=== PATIENT | female | born 1970 | race Caucasian/White ===

== ENCOUNTER → 2017-01-31 | Outpatient (CLI) | payer OTHER, BC ==
--- NOTE | 2017-01-31 08:14 | MM ---
Reason for exam: screening (asymptomatic). Baseline mammogram. History: Family history of breast cancer in paternal aunt at age 30 and breast cancer in maternal aunt at age 40. Took hormonal contraceptives beginning at age 18. Physical Findings: Nurse did not find any significant physical abnormalities on exam. MG Screening Mammo w CAD Bilateral CC and MLO view(s) were taken. XCCL view(s) were taken of the right breast. Bilateral intramammary nodes. No suspicious abnormality. These results were verbally communicated with the patient and result sheet given to the patient on 01/31/17. ASSESSMENT: Benign, BI-RAD 2 RECOMMENDATION: Routine screening mammogram of both breasts in 1 year.
== END ==
LOC: RADMAMWWP 06:45
PROVIDERS: ATTEND Family Medicine
DX: Z12.31 Encounter for screening mammogram for malignant neoplasm of breast (principal)

== ENCOUNTER → 2020-05-09 | Outpatient (CLI) | payer OTHER, BC ==
--- NOTE | 2020-05-09 07:45 | MR ---
EXAMINATION TYPE: MR knee RT wo con DATE OF EXAM: 05/09/2020 COMPARISON: HISTORY: Pain in right knee per order. Pain and swelling for 3 to 5 years per patient. TECHNIQUE: Multiplanar, multisequence imaging of the right knee is performed without IV contrast. FINDINGS: MEDIAL MENISCUS: Medial extrusion medial meniscus on coronal images. Abnormal signal posterior horn e xtends into central body which is emaciated. LATERAL MENISCUS: Anterior and posterior horns are intact without tear. CRUCIATE LIGAMENTS: The anterior and posterior cruciate ligaments are intact and unremarkable. COLLATERAL LIGAMENTS: The medial collateral ligament and lateral collateral ligament complex are inta ct. Medial buckling medial collateral ligament noted from extruded meniscus. EXTENSOR MECHANISM: Visualized quadriceps and patellar tendons are intact. EFFUSION: No significant suprapatellar joint effusion. POPLITEAL CYST: Large size popliteal/salvador cyst measuring 10 cm sagittal image 6. TRICOMPARTMENT SPACES: Moderate to severe patellofemoral compartment and medial tibiofemoral compartm ent joint space loss and spurring. Mild to moderate spurring and narrowing lateral tibiofemoral melva rtment. CARTILAGE: Significant chondromalacia patella along the posterior patellar pole with areas of full-th ickness loss noted. Full-thickness cartilaginous loss medial tibiofemoral compartment. BONE MARROW SIGNAL: No focal abnormal marrow signal is appreciated. OTHER: No additional significant abnormality is appreciated. IMPRESSION: 1. Fairly severe patellofemoral and medial tibiofemoral compartment degenerative changes especially f or patient's age as detailed above. 2. Full-thickness tear central body and posterior horn of medial meniscus. 3. Large popliteal cyst.
== END | disposition home or self-care (01) ==
LOC: RADMRIMAIN 06:44
PROVIDERS: ATTEND Family Medicine
DX: M17.11 Unilateral primary osteoarthritis, right knee (principal); S83.241A Other tear of medial meniscus, current injury, right knee, initial encounter; M71.21 Synovial cyst of popliteal space [Baker], right knee

== ENCOUNTER → 2020-08-12 | Outpatient (CLI) | payer OTHER, BC ==
--- NOTE | 2020-08-16 09:45 | MM ---
Reason for exam: screening (asymptomatic). Last mammogram was performed 3 years and 6 months ago. History: Family history of breast cancer in paternal aunt at age 30 and breast cancer in maternal aunt at age 40. Took hormonal contraceptives beginning at age 18. Physical Findings: A clinical breast exam by your physician is recommended on an annual basis and results should be correlated with mammographic findings. MG 3D Screening Mammo W/Cad Bilateral CC, MLO, and XCCL view(s) were taken. Prior study comparison: January 31, 2017, bilateral MG screening mammo w CAD. There are scattered fibroglandular densities. There is chronic nodularity bilaterally laterally. No significant changes when compared with prior studies. ASSESSMENT: Negative, BI-RAD 1 RECOMMENDATION: Routine screening mammogram of both breasts in 1 year.
== END | disposition home or self-care (01) ==
LOC: RADMAMWWP 16:02
PROVIDERS: ATTEND Family Medicine
DX: Z12.31 Encounter for screening mammogram for malignant neoplasm of breast (principal)
CPT/HCPCS: 77063; 77067

== ENCOUNTER 2022-03-03 20:02 | Observation (INO) | payer BC, OTHER ==
--- NOTE | 2022-03-03 20:37 | XR ---
EXAMINATION TYPE: XR chest 2V DATE OF EXAM: 03/03/2022 COMPARISON: NONE HISTORY: Chest pain TECHNIQUE: 2 views FINDINGS: Heart and mediastinum are normal. Lungs are clear. Diaphragm is normal. Bony thorax is norm al. IMPRESSION: Normal chest.
[2022-03-03 20:45] LABS: Basophils % (A) 0 %; Eosinophils # (A) 0.2 k/uL (0-0.7); Eosinophils % (A) 2 %; HCT 38.7 % (34.0-46.0); HGB 13.3 gm/dL (11.4-16.0); Lymphocytes # (A) 2.1 k/uL (1.0-4.8); Lymphocytes % (A) 24 %; MCH 30.4 pg (25.0-35.0); MCHC 34.5 g/dL (31.0-37.0); Mean Platelet Volume 9.3; Monocytes # (A) 0.6 k/uL (0-1.0); Monocytes % (A) 7 %; Neutrophils # (A) 5.6 k/uL (1.3-7.7); Neutrophils % (A) 65 %; Platelet Count 246 k/uL (150-450); RBC 4.39 m/uL (3.80-5.40); RDW 12.8 % (11.5-15.5); WBC 8.6 k/uL (3.8-10.6)
[2022-03-03 20:53] LABS: INR 0.9 (<1.2); Partial Thromboplastin Time 24.2 sec (22.0-30.0); Prothrombin Time 10.3 sec (9.0-12.0)
[2022-03-03 20:59] LABS: ALT 21 U/L (4-34); AST 20 U/L (14-36); African American GFR (CKD) >90 (>60 ml/min/1.73 sqM); Albumin 4.4 g/dL (3.5-5.0); Alkaline Phosphatase 66 U/L (38-126); Anion Gap 10 mmol/L; Blood Urea Nitrogen 21 mg/dL (7-17); Calcium 9.1 mg/dL (8.4-10.2); Carbon Dioxide 25 mmol/L (22-30); Chloride 102 mmol/L (98-107); Glucose 98 mg/dL (74-99); Magnesium 1.9 mg/dL (1.6-2.3); Non-African American GFR(CKD) >90 (>60 ml/min/1.73 sqM); Potassium 3.9 mmol/L (3.5-5.1); Sodium 137 mmol/L (137-145); Total Bilirubin 0.3 mg/dL (0.2-1.3); Total Protein 6.8 g/dL (6.3-8.2)
--- NOTE | 2022-03-03 21:52 | ED ---
Chest Pain HPI - General Chief Complaint: Chest Pain Stated Complaint: Chest pain Time Seen by Provider: 03/03/22 21:51 Source: patient, RN notes reviewed, old records reviewed Mode of arrival: ambulatory Limitations: no limitations - History of Present Illness Initial Comments: This is a 52-year-old female to the ER for evaluation of chest pain. Is having mainly palpitations near syncopal feelings feels that she's having an abnormal heartbeat. Occasional chest pain. Patient does have history of PVCs no prior history of heart evaluation, Patient has no cp currently does have SOB, and diaphoresis during events, does have strong family history of heart disease herself has high blood pressure no prior cardiac evaluation MD Complaint: chest pain -: days(s) Onset: during rest Pain Location: substernal, left chest Pain Radiation: none Severity: moderate Severity scale (1-10): 4 Quality: tightness, heaviness Consistency: intermittent Improves With: nothing, eating Anginal Symptoms: diaphoresis, dyspnea, sense of impending doom Other Symptoms: palpitations Treatments Prior to Arrival: none - Related Data Home Medications Medication Instructions Recorded Confirmed Lisinopril/Hydrochlorothiazide 1 tab PO DAILY 09/15/15 03/03/22 [Lisinopril-Hctz 10-12.5 mg Tab] amLODIPine [Norvasc] 5 mg PO DAILY 03/03/22 03/03/22 Allergies Allergy/AdvReac Type Severity Reaction Status Date / Time No Known Allergies Allergy Verified 03/03/22 22:12 Review of Systems ROS Statement: Those systems with pertinent positive or pertinent negative responses have been documented in the HPI. ROS Other: All systems not noted in ROS Statement are negative. EKG Findings - EKG Comments: EKG Findings:: EKG sinus 77 TX 176 QRS 11 QTC 418 positive PVC Past Medical History Past Medical History: No Reported History History of Any Multi-Drug Resistant Organisms: None Reported Past Surgical History: Section, Joint Replacement Past Psychological History: No Psychological Hx Reported Smoking Status: Never smoker Past Alcohol Use History: Occasional Past Drug Use History: None Reported General Exam Limitations: no limitations General appearance: alert, in no apparent distress Head exam: Present: atraumatic, normocephalic, normal inspection Eye exam: Present: normal appearance, PERRL, EOMI. Absent: scleral icterus, conjunctival injection, periorbital swelling ENT exam: Present: normal exam, mucous membranes moist Neck exam: Present: normal inspection. Absent: tenderness, meningismus, lymphadenopathy Respiratory exam: Present: normal lung sounds bilaterally. Absent: respiratory distress, wheezes, rales, rhonchi, stridor Cardiovascular Exam: Present: regular rate, normal rhythm, normal heart sounds. Absent: systolic murmur, diastolic murmur, rubs, gallop, clicks GI/Abdominal exam: Present: soft, normal bowel sounds. Absent: distended, tenderness, guarding, rebound, rigid Extremities exam: Present: normal inspection, full ROM, normal capillary refill. Absent: tenderness, pedal edema, joint swelling, calf tenderness Back exam: Present: normal inspection Neurological exam: Present: alert, oriented X3, CN II-XII intact Psychiatric exam: Present: normal affect, normal mood Skin exam: Present: warm, dry, intact, normal color. Absent: rash Course Vital Signs 03/03/22 03/03/22 20:08 23:11 Temperature 98.1 F Pulse Rate 77 79 Respiratory 18 18 Rate Blood Pressure 159/90 145/96 O2 Sat by Pulse 100 97 Oximetry - Reevaluation(s) Reevaluation #1: 03/03/22 23:03 medical record is reviewed Reevaluation #2: 03/03/22 23:03 patient still with palpitations Reevaluation #3: 03/03/22 23:03 patient informed of results and questions answered - Consultations Consultation #1: spoke with [facility] and they agree to admit the patient Chest Pain MDM - MDM 52 female to the ED c.o PVCs, chest pain, near syncope, weakness, will admit for cardiac evaluation, has history of HTN, strong family history of heart disease Disposition Clinical Impression: Atypical chest pain, Chest pain, Palpitations, Premature ventricular contraction Disposition: ADMITTED IP TO THIS HOSP Condition: Undetermined Is patient prescribed a controlled substance at d/c from ED?: No Time of Disposition: 23:00
[2022-03-03] MEDS ORDERED: ASPIRIN 81 MG PO STA (22:58)
[2022-03-03] MEDS ORDERED: NITROGLYCERIN SL TABS 0.4 MG TAB SUBLINGUAL PRN (22:58)
--- NOTE | 2022-03-04 03:58 | P.HPIM ---
History of Present Illness H&P Date: 03/04/22 The patient is a 52-year-old female with a PMH of hypertension who presents to the emergency room with complaints of palpitations and chest discomfort. The patient reports that she has been experiencing symptoms intermittently over the past several weeks, and was scheduled to undergo a stress test with cardiology associates. She states however that her symptoms recently worsened last night when she developed her palpitations and substernal 5 out of 10 chest discomfort, pressure-like in nature, nonradiating, with some associated dizziness. She reports that her pain was constant for up to an hour, which prompted her to come to the emergency room. She denied associated shortness of breath, nausea, diaphoresis. Denied lower extremity swelling or pain. Denies fever, chills, cough. Chest x-ray in the emergency room was unremarkable. EKG in the emergency room revealed sinus rhythm at 77 bpm with PVCs and no ST/T-wave changes noted as reviewed by me. Laboratory evaluation revealed a troponin of less than 0.012. Review of systems: Pertinent positives and negatives as discussed in HPI, a complete review of systems was performed and all other systems are negative. Physical examination: General: non toxic, no distress, appears at stated age, obese Derm: no unusual rashes/lesions, warm Head: atraumatic, normocephalic, symmetric Eyes: EOMI, no lid lag, anicteric sclera, pupils equal round reactive to light ENT: Nose and ears atraumatic Neck: No cervical lymphadenopathy, trachea midline, supple Mouth: no lip lesion, mucus membranes moist Cardiovascular: S1S2 reg, no murmur, positive dorsalis pedis pulse bilateral, no edema Lungs: CTA bilateral, no rhonchi, no rales, no accessory muscle use Abdominal: soft, nontender to palpation, no guarding Ext: muscle strength 5 out of 5 in all 4 extremities grossly, no gross muscle atrophy, no contractures, Neuro: CN II-XI grossly intact, no gross focal neuro deficits Psych: Alert, oriented, appropriate affect Assessment/plan Chest pain, rule out ACS -Cardiac consult -Continue aspirin, statin -Cardiac monitoring -Echocardiogram Chronic conditions: Hypertension -Continue with home meds DVT prophylaxis -Heparin subcu The patient is admitted with an anticipated less than 2 midnight stay for evaluation of chest pain. CODE STATUS: Full Code Discussed with: Patient Anticipated discharge date: In a.m. Anticipated discharge place: Home Past Medical History Past Medical History: No Reported History History of Any Multi-Drug Resistant Organisms: None Reported Past Surgical History: Section, Joint Replacement Past Psychological History: No Psychological Hx Reported Smoking Status: Never smoker Past Alcohol Use History: Occasional Past Drug Use History: None Reported - Past Family History Mother Family Medical History: Hypertension Medications and Allergies Home Medications Medication Instructions Recorded Confirmed Type Lisinopril/Hydrochlorothiazide 1 tab PO DAILY 09/15/15 03/03/22 History [Lisinopril-Hctz 10-12.5 mg Tab] amLODIPine [Norvasc] 5 mg PO DAILY 03/03/22 03/03/22 History Allergies Allergy/AdvReac Type Severity Reaction Status Date / Time No Known Allergies Allergy Verified 03/03/22 22:12 Physical Exam Vitals: Vital Signs Temp Pulse Resp BP Pulse Ox 03/04/22 03:54 98.6 F 64 16 102/58 98 03/04/22 02:09 68 18 110/76 97 03/03/22 23:11 79 18 145/96 97 03/03/22 20:08 98.1 F 77 18 159/90 100 Intake and Output 03/03/22 03/03/22 03/04/22 14:59 22:59 06:59 Other: Weight 104.326 kg Results CBC & Chem 7: 03/03/22 20:10 03/03/22 20:10 Labs: Abnormal Lab Results - Last 24 Hours (Table) 03/03/22 Range/Units 20:10 BUN 21 H (7-17) mg/dL
[2022-03-04] MEDS: ATORVASTATIN 80 MG TAB PO SCH ×2 (04:37→20:54)
[2022-03-04] MEDS: ASPIRIN 325 MG TAB PO SCH (09:26)
[2022-03-04] MEDS: amLODIPine 5 MG TAB PO SCH (09:26)
[2022-03-04] MEDS ORDERED: ACETAMINOPHEN TAB 500 MG TAB PO PRN (09:36)
[2022-03-04] MEDS: METOPROLOL TARTRATE 25 MG TAB PO SCH ×2 (09:59→20:54)
[2022-03-04 10:10] LABS: Chol/HDL Ratio 3.59 Ratio; LDL Cholesterol,Calculated 102.6 mg/dL (0.0-131.0)
[2022-03-04] MEDS: LISINOPRIL-HCTZ 10-12.5 MG 1 EACH TAB PO SCH (12:27)
[2022-03-04] MEDS ORDERED: diphenhydrAMINE 50 MG/ML 1 ML VIAL IVP STA (13:04)
[2022-03-04] MEDS ORDERED: PROCHLORPERAZINE INJ 10 MG/2 ML VIAL IVP STA (13:04)
[2022-03-04] MEDS ORDERED: KETOROLAC 15 MG/ML 1 ML VIAL IVP STA (13:04)
--- NOTE | 2022-03-04 13:35 | P.PN ---
Subjective Progress Note Date: 03/04/22 Hospital course: Patient is a very pleasant 52-year-old female with a past medical history of hypertension. She presented to the emergency department with a chief complaint of chest pain and palpitations intermittently worsening over the past several weeks. She underwent full evaluation in the emergency department. CBC, coags, and CMP were unremarkable. Troponin less than 0.012. Chest x-ray negative for acute cardiopulmonary process. EKG showing sinus rhythm at 77 bpm with frequent PVCs, no T-wave or ST abnormalities showing no signs of acute ischemia. Patient was admitted under the services with consultation to cardiology. Troponins were trended all negative at less than 0.0123 draws. Lipid profile unremarkable. Plan is for patient to undergo exercise stress echo tomorrow morning. Physical exam: Patient seen and fully evaluated at bedside this morning. Currently patient reports being free from chest pain but reports is an intermittent pressure that occurs with palpitations. Patient reports currently having a headache and to be medicated at this time, but denies experiencing any dizziness, changes in vision or hearing, shortness of breath, exertional dyspnea, or experiencing any numbness/tingling/swelling/weakness in her extremities. Vital signs reviewed and stable. General: Nontoxic, no distress and appears stated age. Derm: Skin warm and dry, normal coloration for ethnicity. Head: Atraumatic, normocephalic and symmetric. Eyes: EOMs intact, no lid lag, and anicteric sclera Mouth: no lip lesions, mucus membranes moist Cardiovascular: regular rate and rhythm with normal S1S2, no murmur, positive posterior tibial pulses bilaterally, and cap refill < 2 seconds. Lungs: Respirations even, regular, and unlabored on room air. Lungs CTA bi laterally, no rhonchi, no rales, no wheezing, and no accessory muscle usage. Abdominal: soft, nontender to palpation, no guarding, no appreciable organomegaly Ext: ROM intact. No gross muscle atrophy, no edema, no contractures Neuro: Speech clear, face symmetrical and CN II-XII grossly intact with no noted focal neuro deficits Psych: Alert and oriented to person, place, time, and situation. Appropriate and pleasant affect. Assessment and Plan of Care: Chest pain, rule out acute coronary event -Cardiology consulted, plans to take patient for exercise stress echo tomorrow morning -Telemetry monitoring -Troponins negative -Cardiac diet, NPO at midnight -Aspirin, amlodipine, lisinopril-Hctz, and metoprolol. -Lipid profile unremarkable. -Exercise Stress Echocardiogram to be completed. Hypertension -Monitor vital signs and continue daily medication regimen with amlodipine, lisinopril-Hctz, and metoprolol. CODE STATUS: Full code DVT prophylaxis: Heparin Discussed with: Patient and RN Anticipated discharge date: 1-[address]: Home A total of 35 minutes was spent on the care of this complex patient more than 50% of the time was spent in counseling and care coordination. I reviewed the documentation as provided by the DAGOBERTO above, who is the original author of this note. I agree with the documented assessment and plan, with the following changes: none Objective - Vital Signs Vital signs: Vital Signs Temp 98.2 F 03/04/22 07:45 Pulse 72 03/04/22 07:45 Resp 14 03/04/22 07:45 BP 178/89 03/04/22 07:45 Pulse Ox 98 03/04/22 07:45 FiO2 Intake & Output 03/03/22 03/04/22 03/04/22 18:59 06:59 18:59 Weight 104.326 kg 104.326 kg - Labs CBC & Chem 7: 03/03/22 20:10 03/03/22 20:10 Labs: Abnormal Lab Results - Last 24 Hours (Table) 03/03/22 Range/Units 20:10 BUN 21 H (7-17) mg/dL
[2022-03-04] MEDS: HEPARIN SODIUM,PORCINE/PF 5,000 UNIT/0.5 ML SYRINGE SQ SCH (16:52)
--- NOTE | 2022-03-05 00:04 | CONS ---
CONSULTATION HISTORY OF PRESENT ILLNESS: Melinda is a 52-year-old lady with history of hypertension who presented to hospital complaining of palpitations. She has been having palpitations for the last several weeks, have gotten particularly worse associated with some dizziness, and she came to the ER and got admitted. She also complains of the atypical and sharp chest pain. EKG shows sinus rhythm with PVCs. Three sets of cardiac enzymes have been negative. There is no prior cardiac history. There is no history of coronary artery disease or congestive heart failure. I talked to the patient about her treatment options including going home and undergoing an outpatient event monitor, echo, and stress test or staying in the hospital and getting the workup completed tomorrow. The patient wished to stay and get the workup done. PAST MEDICAL HISTORY: Significant for hypertension. CURRENT MEDICATIONS: Include: 1. Amlodipine 5 mg daily. 2. Lisinopril/hydrochlorothiazide. FAMILY HISTORY: Negative for premature coronary artery disease. SOCIAL HISTORY: Negative for smoking, EtOH abuse, or drug abuse. REVIEW OF SYSTEMS: HEENT: Unremarkable. CARDIAC: As described above. RESPIRATORY: As described above. GI: Negative. GENITOURINARY: Negative. ALLERGY/IMMUNOLOGY: Negative. SKIN: Negative. MUSCULOSKELETAL: Significant for arthritis. PSYCHOSOCIAL: Negative. DERM: Negative. CONSTITUTIONAL: Negative. ONCOLOGICAL: Negative. FROG CATCHER: Negative. Rest of the system review is not relevant. PHYSICAL EXAMINATION: GENERAL: Comfortable at rest. VITAL SIGNS: Afebrile. Heart rate is 68 beats per minute, blood pressure is 147/74, respiratory rate is 18, O2 saturation is 99% on room air. NECK: There is no jugular venous distention. Carotid upstroke is normal. There is no bruit. CHEST: Reveals good air entry bilaterally. HEART: Reveals first and second heart sounds. No gallop. No murmur. ABDOMEN: Soft. EXTREMITIES: Do not reveal any edema. Peripheral pulses are felt. LABORATORY DATA: Showed that the troponins are negative. Creatinine is 0.6. Hemoglobin is 13.3. ASSESSMENT: 1. Atypical chest pain. 2. Palpitations secondary to premature ventricular contractions. PLAN: The patient will undergo an echocardiogram and stress echo tomorrow morning. MMODL / IJN: [id number] /
[2022-03-05] MEDS: HEPARIN SODIUM,PORCINE/PF 5,000 UNIT/0.5 ML SYRINGE SQ SCH ×3 (00:18→15:05)
[2022-03-05 07:36] VITALS: RESP 15
[2022-03-05] MEDS: ASPIRIN 325 MG TAB PO SCH (07:57)
[2022-03-05] MEDS: LISINOPRIL-HCTZ 10-12.5 MG 1 EACH TAB PO SCH (07:57)
[2022-03-05] MEDS: amLODIPine 5 MG TAB PO SCH (07:57)
[2022-03-05] MEDS ORDERED: DOBUTamine DRIP for NUC MED 500 MG in DEXTROSE/WATER 1 250ML.BAG IV PRN (08:33)
[2022-03-05] MEDS ORDERED: ASPIRIN 81 MG PO SCH (09:00)
--- NOTE | 2022-03-05 09:38 | P.PN ---
Subjective Progress Note Date: 03/05/22 HISTORY OF PRESENT ILLNESS: patient seen and examined at this point at the bedside. She denies any further episodes of chest pain. Denies shortness of breath. Vital signs are stable. PHYSICAL EXAM: VITAL SIGNS: Reviewed. GENERAL: Well-developed in no acute distress. NECK: Supple. No JVD or thyromegaly LUNGS: Respirations even and unlabored. Lungs essentially clear to auscultation bilaterally. HEART: Regular rate and rhythm. S1 and S2 heard. EXTREMITIES: Normal range of motion. No clubbing or cyanosis. Peripheral pulses intact. No lower extremity edema ASSESSMENT: Chest pain Hypertension PLAN: 2-D echo ordered. Await results Continue current cardiac medications Patient will undergo dobutamine stress test today. If negative, she may be discharged home today from a cardiac standpoint Nurse practitioner note has been reviewed by physician. Signing provider agrees with the documented findings, assessment, and plan of care. Objective - Vital Signs Vital signs: Vital Signs Temp 98 F 03/05/22 07:00 Pulse 53 L 03/05/22 07:00 Resp 15 03/05/22 07:00 BP 116/68 03/05/22 07:00 Pulse Ox 100 03/05/22 07:00 FiO2 Intake & Output 03/04/22 03/05/22 03/05/22 18:59 06:59 18:59 Intake Total 600 Balance 600 Weight 104.326 kg Intake: Oral 600 Other: # Voids 2 1 - Labs CBC & Chem 7: 03/03/22 20:10 03/03/22 20:10
[2022-03-05] MEDS ORDERED: DOBUTamine DRIP for NUC MED 500 MG/250 ML BAG IV ONE (12:10)
[2022-03-05] MEDS: METOPROLOL TARTRATE 25 MG TAB PO SCH (12:46)
--- NOTE | 2022-03-05 14:44 | CA ---
Dobutamine Stress Echocardiogram Report Melinda Marie Age: 52 Gender: F : 1970 Exam Date: 03/05/2022 11:34 Exam Location: [facility] Ordering Physician: Franchesca Pavon Referring Physician: KIKI, Floor Service Worker Spring: Clarke Hicks Technologist: Ht (in): 65 Wt (lb): 230 Procedure CPT: Indication: CP ICD-9 Codes: Rhythm: Patient History: Cardiac Medications: Medications in past 24 hours: Contrast: Total Dose (mL): Stress Results Protocol: Peak Dose (???g/kg/min): Duration (min:sec): Atropine:(mg) Target HR: 141 Double Product: [id number] Resting HR: 57 Resting BP: 112 / 61 Peak HR: 142 Peak BP: 201 / 73 Max Predicted HR: 166 86 % Max Predicted HR Stress Summary: BP Response: Reason for Termination: Completion of Infusion Cardiac Symptoms: NO SYMPTOMS ECG Analysis Resting EKG: Stress EKG: Arrhythmia: Echo Analysis Base Echo Analysis: Low Echo Anaylsis: Peak Echo Analysis: Recovery Echo: MEASUREMENTS (Male/Female) Normal Values CONCLUSIONS Dobutamine stress echo Occasional PVCs with a left bundle branch block morphology Early repolarization abnormalities No ECG abnormalities of ischemia with dobutamine infusion No stress-induced ischemia Excellent augmentation overall LV contractility in a stepwise manner without development of any wall motion abnormalities during dobutamine infusion At recovery revealed global LV systolic function with normal Impression: No ECG or echocardiographic evidence for ischemia Dr. William Mckay MD (Electronically Signed) Final Date: 05 March 2022 14:43
[2022-03-05 14:47] VITALS: BP 118/71; PULSE 55; TEMP 97.6
--- NOTE | 2022-03-05 15:38 | P.DS ---
Providers Date of admission: 03/03/22 22:58 Expected date of discharge: 03/05/22 Attending physician: Mary Nguyen MD Primary care physician: Hemanth Woodwarddariusz [facility] Course: Discharge Diagnosis: Chest pain, Troponins were trended all negative at less than 0.0123 draws. Lipid profile unremarkable. Patient underwent dobutamine stress echo which revealed no ECG or echocardiographic evidence for ischemia. Cardiology recommended outpatient follow-up in the office. Palpitations with Frequent PVCs, patient started on metoprolol 25 mg twice daily. Hypertension. Monitor vital signs and continue daily medication regimen with amlodipine, lisinopril-Hctz, and metoprolol. Hospital Course: Patient is a very pleasant 52-year-old female with a past medical history of hypertension. She presented to the emergency department with a chief complaint of chest pain and palpitations intermittently worsening over the past several weeks. She underwent full evaluation in the emergency department. CBC, coags, and CMP were unremarkable. Troponin less than 0.012. Chest x-ray negative for acute cardiopulmonary process. EKG showing sinus rhythm at 77 bpm with frequent PVCs, no T-wave or ST abnormalities showing no signs of acute ischemia. Patient was admitted under the services with consultation to cardiology. Troponins were trended all negative at less than 0.0123 draws. Lipid profile unremarkable. Patient underwent dobutamine stress echo which revealed no ECG or echocardiographic evidence for ischemia. Cardiology recommended outpatient follow-up in the office. Patient is free from chest pain and is medically stable for discharge home at this time. Physical exam: Vital signs reviewed and stable. General: Nontoxic, no distress and appears stated age. Derm: Skin warm and dry, normal coloration for ethnicity. Head: Atraumatic, normocephalic and symmetric. Eyes: EOMs intact, no lid lag, and anicteric sclera Mouth: no lip lesions, mucus membranes moist Cardiovascular: regular rate and rhythm with normal S1S2, no murmur, positive posterior tibial pulses bilaterally, and cap refill < 2 seconds. Lungs: Respirations even, regular, and unlabored on room air. Lungs CTA bilaterally, no rhonchi, no rales, no wheezing, and no accessory muscle usage. Abdominal: soft, nontender to palpation, no guarding, no appreciable organomegaly Ext: ROM intact. No gross muscle atrophy, no edema, no contractures Neuro: Speech clear, face symmetrical and CN II-XII grossly intact with no noted focal neuro deficits Psych: Alert and oriented to person, place, time, and situation. Appropriate and pleasant affect. A total of 31 minutes of time were spent preparing this complex discharge summary. Pt was discharged on 03/05/22 at 3:17 PM. I reviewed the documentation as provided by the DAGOBERTO above, who is the original author of this note. I agree with the documented assessment and plan, with the following changes: none Patient Condition at Discharge: Stable Plan - Discharge Summary New Discharge Prescriptions: New Metoprolol Tartrate [Lopressor] 25 mg PO BID 30 Days #60 tab Continue Lisinopril/Hydrochlorothiazide [Lisinopril-Hctz 10-12.5 mg Tab] 1 tab PO DAILY amLODIPine [Norvasc] 5 mg PO DAILY Discharge Medication List Lisinopril/Hydrochlorothiazide [Lisinopril-Hctz 10-12.5 mg Tab] 1 tab PO DAILY 09/15/15 [History] amLODIPine [Norvasc] 5 mg PO DAILY 03/03/22 [History] Metoprolol Tartrate [Lopressor] 25 mg PO BID 30 Days #60 tab 03/05/22 [Rx] Follow up Appointment(s)/Referral(s): William Mckay MD [STAFF PHYSICIAN] - 1 Week Jer Kelly MD [Primary Care Provider] - 1-2 days Patient Instructions/Handouts: Chest Pain (DC) Activity/Diet/Wound Care/Special Instructions: Activity: As tolerated. Take breaks as needed. Diet: Heart healthy and carb consistent diet. Avoid salts, or foods with hidden salts such as canned or boxed foods and frozen dinners. Extra salt makes your heart work harder and traps the fluid in your body for longer. Special Instructions: Take all of your medications as directed and remember to keep all of your doctor's appointments and follow-up as needed. Thank you for allowing us to participate in your care, it was truly a pleasure having you for our patient!!! Discharge Disposition: HOME SELF-CARE
--- NOTE | 2022-03-05 18:35 | CA ---
Transthoracic Echo Report Name: Melinda Marie Age: 52 Gender: F : 1970 Exam Date: 03/05/2022 12:14 Exam Location: [place] [facility] Ht (in): 65 Wt (lb): 230 Ordering Physician: Jer Babb DO Attending/Referring Phys: [id number], Holley [employer] Ailin Lin RDCS Procedure CPT: Indications: CP Cardiac Hx: Technical Quality: Fair Contrast 1: Total Dose (mL): Contrast 2: Total Dose (mL): MEASUREMENTS (Male / Female) Normal Values 2D ECHO LV Diastolic Diameter PLAX 3.8 cm 4.2 - 5.9 / 3.9 - 5.3 cm LV Systolic Diameter PLAX 1.8 cm IVS Diastolic Thickness 1.1 cm 0.6 - 1.0 / 0.6 - 0.9 cm LVPW Diastolic Thickness 1.2 cm 0.6 - 1.0 / 0.6 - 0.9 cm LV Relative Wall Thickness 0.6 RV Internal Dim ED PLAX 2.7 cm LA Volume 70.2 cm??? 18 - 58 / 22 - 52 cm??? M-MODE Aortic Root Diameter MM 3.4 cm LA Systolic Diameter MM 3.7 cm LA Ao Ratio MM 1.1 AV Cusp Separation MM 2.3 cm DOPPLER AV Peak Velocity 154.0 cm/s AV Peak Gradient 9.5 mmHg LVOT Peak Velocity 115.8 cm/s LVOT Peak Gradient 5.4 mmHg MV Area PHT 3.2 cm??? Mitral E Point Velocity 92.8 cm/s Mitral A Point Velocity 74.5 cm/s Mitral E to A Ratio 1.2 MV Deceleration Time 238.8 ms TR Peak Velocity 223.9 cm/s TR Peak Gradient 20.1 mmHg Right Ventricular Systolic Press 24.4 mmHg FINDINGS Left Ventricle Mildly increased left ventricular wall thickness. Normal left ventricular systolic function with no obvious regional wall motion abnormalities. Left ventricular ejection fraction is estimated at 55-60 %. Right Ventricle Normal right ventricular size and function. Right ventricular systolic pressure within normal limits. Right Atrium Normal right atrial size. Left Atrium Moderately increased left atrial volume. Mitral Valve Structurally normal mitral valve. Mild mitral annular calcification. Mild mitral regurgitation. Aortic Valve Trileaflet aortic valve. No aortic stenosis. No aortic regurgitation. Aortic valve sclerosis. Tricuspid Valve Structurally normal tricuspid valve. Mild tricuspid regurgitation. Pulmonic Valve Trace pulmonic regurgitation. Pericardium No pericardial effusion. Aorta Normal size aortic root and proximal ascending aorta. CONCLUSIONS LVH with preserved systolic function Previewed by: Dr. William Mckay MD (Electronically Signed) Final Date: 05 March 2022 18:34
== END 2022-03-05 16:00 | disposition home or self-care (01) ==
LOC: EC 20:02 → 6NMEDSUR 22:58
PROVIDERS: ADMIT Internal Medicine; ATTEND Internal Medicine
DX: R07.89 Other chest pain (principal); I49.3 Ventricular premature depolarization; I10 Essential (primary) hypertension; I44.7 Left bundle-branch block, unspecified; R06.02 Shortness of breath; R61 Generalized hyperhidrosis; R53.1 Weakness; R42 Dizziness and giddiness; R51.9 Headache, unspecified; M19.90 Unspecified osteoarthritis, unspecified site; Z79.899 Other long term (current) drug therapy; Z96.60 Presence of unspecified orthopedic joint implant; Z98.891 History of uterine scar from previous surgery; Z82.49 Family history of ischemic heart disease and other diseases of the circulatory system
CPT/HCPCS: 96372 ×2; 96374; 96375; 99285; 36415; 93005 ×2; 93306; 93351; 80061; 80053; 83735; 84484 ×2; 85025; 85610; 85730; 71046; G0378 ×3; J1250; J1200; J0780; J1885; J1644 ×2